=== PATIENT | female | born 1995 | race American Indian/Alaskan Native ===

== ENCOUNTER 2021-05-25 08:51 | Emergency (ER) | payer MEDICAID ==
[2021-05-25 08:58] VITALS: BP 112/70
[2021-05-25 11:00] LABS: Hematocrit 37.9 % (30.3-42.9); Hemoglobin 12.7 gm/dl (10.1-14.3); Mean Corpuscular HGB Conc 33 % (30-34); Mean Corpuscular Volume 89 fl (79-97); Platelet Count 225 K/mm3 (140-440); Red Blood Count 4.28 M/mm3 (3.65-5.03)
[2021-05-25 11:24] LABS: Alanine Aminotransferase 13 units/L (7-56); Albumin 4.5 g/dL (3.9-5); Blood Urea Nitrogen 12 mg/dL (7-17); Calcium 9.2 mg/dL (8.4-10.2); Hemolysis Index 53
--- NOTE | 2021-05-25 11:25 | Emergency Department Report ---
ED General Adult HPI - General Chief complaint: Headache Stated complaint: CHEST PAIN, SWOLLEN/NUMB Time Seen by Provider: 05/25/21 10:07 Source: patient Mode of arrival: Ambulatory Limitations: No Limitations - History of Present Illness Initial comments: Patient is a 25-year-old female presents emergency room with complaints of multiple complaints. She states her first complaint is that she has had right ear pain for a month. She denies anything getting into the ear, hearing changes, drainage, bleeding. Patient is also complaining of a migraine headache which she has had for 3 days. She is not taking anything for her symptoms. She denies any vision changes, vomiting, numbness, weakness, speech disturbance, gait disturbance. Patient states that she is also noticed some mild swelling to her lower extremities for couple weeks. 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 She denies any calf pain, chest pain, shortness of breath, cough, hemoptysis. No past medical history. No allergies to medications. Severity scale (0 -10): 0 - Related Data Previous Rx's Medication Instructions Recorded Last Taken Type Butalb/Acetaminophen/Caffeine 1 cap PO Q8HR PRN #10 cap 05/25/21 Unknown Rx [Fioricet 50-300-40 mg CAP] Allergies Allergy/AdvReac Type Severity Reaction Status Date / Time No Known Allergies Allergy Unverified 05/25/21 08:58 ED Review of Systems ROS: Stated complaint: CHEST PAIN, SWOLLEN/NUMB Other details as noted in HPI Comment: All other systems reviewed and negative ED Past Medical Hx - Past Medical History Hx Asthma: Yes - Surgical History Additional Surgical History: hernia repair - Social History Smoking Status: Never Smoker - Medications Home Medications: Home Medications Medication Instructions Recorded Confirmed Last Taken Type Butalb/Acetaminophen/Caffeine 1 cap PO Q8HR PRN #10 cap 05/25/21 Unknown Rx [Fioricet 50-300-40 mg CAP] ED Physical Exam - General Limitations: No Limitations General appearance: alert, in no apparent distress - Head Head exam: Present: atraumatic, normocephalic - Eye Eye exam: Present: normal appearance, EOMI - ENT ENT exam: Present: mucous membranes moist, TM's normal bilaterally, normal external ear exam - Respiratory Respiratory exam: Present: normal lung sounds bilaterally. Absent: respiratory distress, wheezes, rales, rhonchi, stridor, chest wall tenderness, accessory muscle use, decreased breath sounds, prolonged expiratory - Cardiovascular Cardiovascular Exam: Present: regular rate, normal rhythm, normal heart sounds. Absent: systolic murmur, diastolic murmur, rubs, gallop - Extremities Exam Extremities exam: Present: normal inspection, full ROM, normal capillary refill, other (neurovascularly intact, no skin changes, no pedal edema). Absent: tenderness, pedal edema, joint swelling, calf tenderness - Neurological Exam Neurological exam: Present: alert, oriented X3 - Psychiatric Psychiatric exam: Present: normal affect, normal mood - Skin Skin exam: Present: warm, dry, intact ED Course Vital Signs 05/25/21 05/25/21 08:56 10:35 Temperature 98.6 F Pulse Rate 64 Respiratory 16 Rate Blood Pressure 112/70 O2 Sat by Pulse 100 100 Oximetry ED Medical Decision Making - Lab Data Result diagrams: 05/25/21 10:25 05/25/21 10:25 Lab Results 05/25/21 05/25/21 Range/Units 10:25 10:25 WBC 4.2 L (4.5-11.0) K/mm3 RBC 4.28 (3.65-5.03) M/mm3 Hgb 12.7 (10.1-14.3) gm/dl Hct 37.9 (30.3-42.9) % MCV 89 (79-97) fl MCH 30 (28-32) pg MCHC 33 (30-34) % RDW 13.0 L (13.2-15.2) % Plt Count 225 (140-440) K/mm3 Baso % (Auto) Italian Lecturer Add Manual Diff Complete Total Counted 100 Seg Neuts % (Manual) 73.0 H (40.0-70.0) % Lymphocytes % (Manual) 20.0 (13.4-35.0) % Monocytes % (Manual) 7.0 (0.0-7.3) % Nucleated RBC % Not Reportable Seg Neutrophils # Man 3.1 (1.8-7.7) K/mm3 Band Neutrophils # 0.0 K/mm3 Lymphocytes # (Manual) 0.8 L (1.2-5.4) K/mm3 Abs React Lymphs (Man) 0.0 K/mm3 Monocytes # (Manual) 0.3 (0.0-0.8) K/mm3 Eosinophils # (Manual) 0.0 (0.0-0.4) K/mm3 Basophils # (Manual) 0.0 (0.0-0.1) K/mm3 Metamyelocytes # 0.0 K/mm3 Myelocytes # 0.0 K/mm3 Promyelocytes # 0.0 K/mm3 Blast Cells # 0.0 K/mm3 WBC Morphology Not Reportable Hypersegmented Neuts Not Reportable Hyposegmented Neuts Not Reportable Hypogranular Neuts Not Reportable Smudge Cells Not Reportable Toxic Granulation Not Reportable Toxic Vacuolation Not Reportable Dohle Bodies Not Reportable Pelger-Huet Anomaly Not Reportable Agustin Rods Not Reportable Platelet Estimate Consistent w auto Clumped Platelets Not Reportable Plt Clumps, EDTA Not Reportable Large Platelets Not Reportable Giant Platelets Not Reportable Platelet Satelliting Not Reportable Plt Morphology Comment Not Reportable RBC Morphology Normal Dimorphic RBCs Not Reportable Polychromasia Not Reportable Hypochromasia Not Reportable Poikilocytosis Not Reportable Anisocytosis Not Reportable Microcytosis Not Reportable Macrocytosis Not Reportable Spherocytes Not Reportable Pappenheimer Bodies Not Reportable Sickle Cells Not Reportable Target Cells Not Reportable Tear Drop Cells Not Reportable Ovalocytes Not Reportable Helmet Cells Not Reportable Deng-[place] Bodies Not Reportable Iselin Rings Not Reportable [place] Cells Not Reportable Bite Cells Not Reportable Crenated Cell Not Reportable Elliptocytes Not Reportable Acanthocytes (Spur) Not Reportable Rouleaux Not Reportable Hemoglobin C Crystals Not Reportable Schistocytes Not Reportable Malaria parasites Not Reportable Kevan Bodies Not Reportable Hem Pathologist Commnt No Sodium 138 (137-145) mmol/L Potassium 4.1 (3.6-5.0) mmol/L Chloride 103.4 (98-107) mmol/L Carbon Dioxide 26 (22-30) mmol/L Anion Gap 13 mmol/L BUN 12 (7-17) mg/dL Creatinine 0.5 L (0.6-1.2) mg/dL Estimated GFR > 60 ml/min BUN/Creatinine Ratio 24 % Glucose 77 (65-100) mg/dL Calcium 9.2 (8.4-10.2) mg/dL Total Bilirubin 0.50 (0.1-1.2) mg/dL AST 24 (5-40) units/L ALT 13 (7-56) units/L Alkaline Phosphatase 38 (35-129) units/L Total Protein 7.8 (6.3-8.2) g/dL Albumin 4.5 (3.9-5) g/dL Albumin/Globulin Ratio 1.4 % - Medical Decision Making Patient is a 25-year-old female presents emergency room with complaints of multiple complaints. She states her first complaint is that she has had right ear pain for a month. She denies anything getting into the ear, hearing changes, drainage, bleeding. Patient is also complaining of a migraine headache which she has had for 3 days. She is not taking anything for her symptoms. She denies any vision changes, vomiting, numbness, weakness, speech disturbance, gait disturbance. Patient states that she is also noticed some mild swelling to her lower extremities for couple weeks. 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 She denies any calf pain, chest pain, shortness of breath, cough, hemoptysis. No past medical history. No allergies to medications. Normal TMs and canals bilaterally, no signs of infection. Patient has no focal neuro deficits on exam, no meningeal signs, no focal neuro deficits, she has had no trauma. No significant edema present to the bilateral lower extremities, no calf tenderness palpation, neurovascular intact, no skin changes, no signs of infection. No clinical signs of DVT. Labs are stable. Patient given prescription for Fioricet to help with her headaches. Advised patient Please take medication as prescribed as needed. Follow-up with your primary care doctor. Follow-up with lamina searcher. Return to emergency room for any new or worsening symptoms. Eat a low-sodium diet. Please wear compression stockings while on your legs. Elevate your legs when you get home. Critical care attestation.: If time is entered above; I have spent that time in minutes in the direct care of this critically ill patient, excluding procedure time. ED Disposition Clinical Impression: Right ear pain, Leg swelling Headache Qualifiers: Headache type: unspecified Headache chronicity pattern: acute headache Intractability: not intractable Qualified Code(s): R51.9 - Headache, unspecified Disposition: 01 HOME / SELF CARE / HOMELESS Is pt being admited?: No Does the pt Need Aspirin: No Condition: Stable Instructions: Migraine Headache, [id number], Earache, Adult Additional Instructions: Please take medication as prescribed as needed. Follow-up with your primary care doctor. Follow-up with lamina searcher. Return to emergency room for any new or worsening symptoms. Eat a low-sodium diet. Please wear compression stockings while on your legs. Elevate your legs when you get home. Prescriptions: Butalb/Acetaminophen/Caffeine [Fioricet 50-300-40 mg CAP] 1 cap PO Q8HR PRN #10 cap PRN Reason: headache Referrals: BASILIO NICK MD [Staff Physician] - 3-5 Days [facility] [Provider Group] - 3-5 Days [facility] [Provider Group] - 3-5 Days ALESSANDRA HOLLOWAY MD [Referring] - 3-5 Days Time of Disposition: 11:32 Print Language: [id number]
[2021-05-25 11:28] LABS: BUN/Creatinine Ratio 24
[2021-05-25 12:26] LABS: Total Cells Counted 100
[2021-05-25 12:27] LABS: Platelet Estimate Consistent w Auto; RBC Morphology Normal
== END 2021-05-25 12:03 | disposition home or self-care (01) ==
LOC: ED 08:51
DX: H92.01 Otalgia, right ear (principal); M79.89 Other specified soft tissue disorders; R51.9 Headache, unspecified; J45.909 Unspecified asthma, uncomplicated; Z98.890 Other specified postprocedural states
CPT/HCPCS: 36415; 80053; 85007; 85025; 99283